=== PATIENT | male | born 2000 | race Caucasian/White ===

== ENCOUNTER 2019-02-02 22:21 | Emergency (ER) | payer OTHER ==
[~2019-02-02] VITALS: Ht 195.6 cm; Wt 104.5 kg
[~2019-02-02 22:21] MED LIST: LIDO20SO PO
[2019-02-02 22:25] VITALS: BP 146/89
== END 2019-02-02 23:56 | disposition home or self-care (01) ==
LOC: ER 22:21
DX: R11.0 Nausea (principal); R20.2 Paresthesia of skin; Z79.899 Other long term (current) drug therapy; V89.2XXA Person injured in unspecified motor-vehicle accident, traffic, initial encounter; Y93.89 Activity, other specified; Y92.89 Other specified places as the place of occurrence of the external cause; Y99.8 Other external cause status
CPT/HCPCS: 99281

== ENCOUNTER 2019-10-04 15:57 | Emergency (ER) | payer OTHER ==
[~2019-10-04] VITALS: Ht 195.6 cm; Wt 109.1 kg
[2019-10-04] MEDS ORDERED: TETanus/Pertussis (Acell)/Diphther VAC/PF (Tdap-Adult) 0.5ml syringe IMVAC ONE (16:30)
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
[2019-10-04 19:06] VITALS: BP 137/68
== END 2019-10-04 19:12 | disposition home or self-care (01) ==
LOC: ER 15:57
DX: T24.411A Corrosion of unspecified degree of right thigh, initial encounter (principal); Z98.890 Other specified postprocedural states; T54.3X1A Toxic effect of corrosive alkalis and alkali-like substances, accidental (unintentional), initial encounter; Y93.89 Activity, other specified; Y92.89 Other specified places as the place of occurrence of the external cause; Y99.0 Civilian activity done for income or pay
CPT/HCPCS: 90471; 90715; 99283